=== PATIENT | female | born 1965 | race African-American/Black ===

== ENCOUNTER 2019-07-18 19:19 | Emergency (ER) | payer BC ==
[~2019-07-18] VITALS: Ht 154.9 cm; Wt 102.3 kg
[2019-07-18 22:00] LABS: CLARITY URINE CLEAR (CLEAR); COLOR URINE YELLOW (YELLOW); KETONES URINE NEGATIVE (NEGATIVE); LEUKOCYTE ESTERASE URINE NEGATIVE (NEGATIVE); NITRITE URINE NEGATIVE (NEGATIVE); OCCULT BLOOD URINE NEGATIVE (NEGATIVE); PH URINE 7.5 (4.5-8.0); PROTEIN URINE NEGATIVE (NEGATIVE)
[2019-07-19] MEDS ORDERED: KETOROLAC 60MG/2ML VIAL IM ONE (00:30)
[2019-07-19 02:21] VITALS: BP 139/73
== END 2019-07-19 02:34 | disposition home or self-care (01) ==
LOC: ER 19:19
DX: M54.5 Low back pain (principal); Q61.01 Congenital single renal cyst; I10 Essential (primary) hypertension; Z98.890 Other specified postprocedural states
CPT/HCPCS: 76700; 81003; 81025; 96372; 99284; J1885

== ENCOUNTER 2022-09-17 12:18 | Emergency (ER) | payer BC, OTHER ==
[~2022-09-17] VITALS: Ht 154.9 cm; Wt 96.0 kg
[2022-09-17] MEDS ORDERED: ALBUTEROL (0.083%) 2.5MG/3ML NEB HHN STA (12:39)
[2022-09-17] MEDS ORDERED: PREDNISONE 20MG TABLET PO STA (12:39)
[2022-09-17] MEDS ORDERED: IPRATROPIUM BROMIDE (0.02%) 0.5MG/2.5ML NEB HHN STA (12:39)
[2022-09-17 12:53] LABS: BASOPHILS % 0.2 % (0.0-2.0); EOSINOPHILS % 2.6 % (0.0-5.0); HEMATOCRIT. 37.9 % (36.0-48.0); HEMOGLOBIN. 12.2 g/dL (12.0-16.0); LYMPHOCYTES % 29.6 % (20.0-50.0); MEAN CORPUSCULAR HEMOGLOBIN 25.8 pg (28.0-32.0); MEAN CORPUSCULAR VOLUME 80.1 fL (81.0-99.0); MONOCYTES % 6.6 % (2.0-8.0); PLATELET 299 x1000/uL (130-400); RED BLOOD CELL COUNT 4.73 mill/uL (4.2-5.4); RED CELL DISTRIBUTION WIDTH 15.4 % (11.6-14.6)
[2022-09-17 13:00] LABS: CHLORIDE 110 mEq/L (98-107)
[2022-09-17] MEDS ORDERED: P20 MT (13:16)
[2022-09-17 13:29] VITALS: BP 126/62
[2022-09-17] MEDS ORDERED: POTASSIUM CHLORIDE 20MEQ TABLET SR PO NR (14:00)
== END 2022-09-17 14:23 | disposition home or self-care (01) ==
LOC: ER 12:54
DX: E87.6 Hypokalemia (principal); J45.901 Unspecified asthma with (acute) exacerbation; I10 Essential (primary) hypertension
CPT/HCPCS: 36415; 71045; 80053; 85025; 93005; 94640; 99285; J7512; Z7610